=== PATIENT | male | born 1950 | race Caucasian/White ===

== ENCOUNTER → 2016-05-15 | Outpatient (CLI) | payer OTHER, MEDICARE | END | disposition home or self-care (01) | LOC: PCVCCLINIC 13:20 | PROVIDERS: ATTEND Internal Medicine | DX: R07.89 Other chest pain (principal); R06.02 Shortness of breath; I10 Essential (primary) hypertension; E78.1 Pure hyperglyceridemia; E11.9 Type 2 diabetes mellitus without complications | CPT/HCPCS: 80061; 93005; 93325; 93351 ==

== ENCOUNTER → 2016-06-19 | Outpatient (CLI) | payer OTHER, MEDICARE | END | disposition home or self-care (01) | LOC: PCVCCLINIC 14:05 | PROVIDERS: ATTEND Internal Medicine | DX: I25.10 Atherosclerotic heart disease of native coronary artery without angina pectoris (principal); E11.9 Type 2 diabetes mellitus without complications; I65.29 Occlusion and stenosis of unspecified carotid artery; E78.5 Hyperlipidemia, unspecified; R09.89 Other specified symptoms and signs involving the circulatory and respiratory systems | CPT/HCPCS: G0463 ==

== ENCOUNTER → 2016-06-24 | Outpatient (CLI) | payer OTHER, MEDICARE | END | disposition home or self-care (01) | LOC: PCVCIMAG 09:26 | PROVIDERS: ATTEND Internal Medicine | DX: I10 Essential (primary) hypertension (principal); E11.9 Type 2 diabetes mellitus without complications; R19.07 Generalized intra-abdominal and pelvic swelling, mass and lump; Z87.891 Personal history of nicotine dependence | CPT/HCPCS: 93880; 93978 ==

== ENCOUNTER → 2016-09-10 | Outpatient (CLI) | payer OTHER, MEDICARE | END | disposition home or self-care (01) | LOC: PCVCCLINIC 16:40 | PROVIDERS: ATTEND Internal Medicine | DX: I25.10 Atherosclerotic heart disease of native coronary artery without angina pectoris (principal); E11.9 Type 2 diabetes mellitus without complications; E78.5 Hyperlipidemia, unspecified; I65.29 Occlusion and stenosis of unspecified carotid artery; E78.1 Pure hyperglyceridemia; G51.0 Bell's palsy; K21.9 Gastro-esophageal reflux disease without esophagitis; Z87.898 Personal history of other specified conditions; Z87.891 Personal history of nicotine dependence; Z79.899 Other long term (current) drug therapy | CPT/HCPCS: 93005; G0463 ==

== ENCOUNTER → 2016-12-18 | Outpatient (CLI) | payer OTHER, MEDICARE ==
--- NOTE | 2016-12-18 15:43 | PCVCIMAG ---
APPROVED REPORT Exam: Stress Echocardiogram Indication: CAD, STENT Stress Nurse: Sherri Rodriguez RN Status: routine Ht: 5 ft 9 in HR: 68 bpm BP: 110/74 mmHg Procedure The patient underwent an Exercise Stress Test using the Macho Protocol. Blood pressure, heart rate, and EKG were monitored. An Echocardiogram was performed by copy room technician in four stages in quad fashion. At peak stress, four selected images were obtained and placed side by side with resting images for comparison. Stress Test Details Stress Test: Exercise stress testing was performed using a Macho protocol. HR Resting HR: 68 bpmMax Heart Rate (APMHR): 152 bpm Max HR Achieved: 142 bpmTarget HR (85% APMHR): 129 bpm % of APMHR: 93 HR response to stress: Normal HR response to stress BP Resting BP: 110/74 mmHg Max BP: 160/86 mmHg ECG Resting ECG: Sinus Rhythm, RBBB ST Change: Normal Maximum ST Deviation: 0 mm Recovery ECG: Sinus Rhythm Recovery ST Deviation: 0 mm Clinical Reason for Termination: Maximal effort Exercise duration: 12 min sec Highest Stage Achieved: Stage 4: 4.2 mph at 16% grade. Exercise capacity: 13.70 METs Angina Score: None Stress ECG Conclusion ECG: Non-ischemic Clinical: Non-ischemic Barber Treadmill Score is 12.0 which is Low risk. Pre-Stress Echo The resting Echocardiogram showed normal left ventricular contractility with an estimated Ejection Fraction of about 55-60%. Normal wall motion in all segments on baseline images. Post-Stress Echo The stress Echocardiogram showed normal left ventricular contractility with an estimated Ejection Fraction of about 60-65%. Normal augmentation of wall motion in all segments on post stress images. Clinical No clinical or ECG evidence for ischemia. Conclusion Clinical Response: Non-ischemic Exercise Capacity: Average Stress ECG Response: Non-ischemic Stress Echo Images: Non-ischemic Normal stress echocardiogram with maximal exercise stress. Other Information Study Quality: Good <Conclusion> Normal stress echocardiogram with maximal exercise stress.
== END | disposition home or self-care (01) ==
LOC: PCVCIMAG 13:52
PROVIDERS: ATTEND Internal Medicine
DX: I25.10 Atherosclerotic heart disease of native coronary artery without angina pectoris (principal); E11.9 Type 2 diabetes mellitus without complications; E78.5 Hyperlipidemia, unspecified; I45.10 Unspecified right bundle-branch block; I10 Essential (primary) hypertension; Z95.5 Presence of coronary angioplasty implant and graft; Z79.4 Long term (current) use of insulin
CPT/HCPCS: 93325; 93351

== ENCOUNTER → 2017-05-23 | Outpatient (CLI) | payer MEDICARE | END | disposition home or self-care (01) | LOC: PCVCCLINIC 15:00 | DX: I25.10 Atherosclerotic heart disease of native coronary artery without angina pectoris (principal); I10 Essential (primary) hypertension; E78.5 Hyperlipidemia, unspecified; I65.23 Occlusion and stenosis of bilateral carotid arteries; Z87.891 Personal history of nicotine dependence; Z79.82 Long term (current) use of aspirin; Z79.899 Other long term (current) drug therapy | CPT/HCPCS: 80061; 93005; G0463 ==

== ENCOUNTER → 2017-11-25 | Outpatient (CLI) | payer MEDICARE | END | disposition home or self-care (01) | LOC: PCVCCLINIC 10:39 | PROVIDERS: ATTEND Internal Medicine | DX: I25.10 Atherosclerotic heart disease of native coronary artery without angina pectoris (principal); I10 Essential (primary) hypertension; E78.5 Hyperlipidemia, unspecified; I65.23 Occlusion and stenosis of bilateral carotid arteries; E11.9 Type 2 diabetes mellitus without complications; Z87.891 Personal history of nicotine dependence; Z88.8 Allergy status to other drugs, medicaments and biological substances; Z79.82 Long term (current) use of aspirin; Z79.899 Other long term (current) drug therapy | CPT/HCPCS: 93005; G0463 ==

== ENCOUNTER → 2018-04-28 | Outpatient (CLI) | payer MEDICARE | END | disposition home or self-care (01) | LOC: PCVCCLINIC 13:25 | PROVIDERS: ATTEND Internal Medicine | DX: I25.10 Atherosclerotic heart disease of native coronary artery without angina pectoris (principal); E78.5 Hyperlipidemia, unspecified; I10 Essential (primary) hypertension; I65.23 Occlusion and stenosis of bilateral carotid arteries; E78.00 Pure hypercholesterolemia, unspecified; K21.9 Gastro-esophageal reflux disease without esophagitis; Z87.891 Personal history of nicotine dependence; Z79.82 Long term (current) use of aspirin | CPT/HCPCS: 93005; G0463 ==

== ENCOUNTER → 2018-05-05 | Outpatient (CLI) | payer MEDICARE ==
--- NOTE | 2018-05-05 11:48 | PCVCIMAG ---
APPROVED REPORT Study performed: 05/05/2018 10:30:55 Exam: Stress Echocardiogram Indication: CAD s/p PCI, Hypertension Patient Location: Echo lab Stress Nurse: Casie aKm RN Room #: 2 Status: routine Ht: 5 ft 8 in HR: 69 bpm BP: 118/70 mmHg Rhythm: NSR Medical History Medical History: CAD s/p stent, HTN, Hyperlipidemia Cardiac Risk Factors: HTN, Hyperlipidemia Previous Cardiac Procedures: PCI Pretest Chest Pain Characteristics: No chest pain Exercise History: Physically active Procedure The patient underwent an Exercise Stress Test using the Macho Protocol. Blood pressure, heart rate, and EKG were monitored. An Echocardiogram was performed by dental laboratory technician in four stages in quad fashion. At peak stress, four selected images were obtained and placed side by side with resting images for comparison. Stress Test Details Stress Test: Exercise stress testing was performed using a Macho protocol. HR Resting HR: 67 bpmMax Heart Rate (APMHR): 151 bpm Max HR Achieved: 153 bpmTarget HR (85% APMHR): 128 bpm % of APMHR: 101 Recovery HR: 80 bpm HR response to stress: Normal HR response to stress BP Resting BP: 118/70 mmHg Max BP: 162/78 mmHg Recovery BP: 168/78 mmHg BP response to stress: Normal blood pressure response to stress. Medication held x 1 day ECG Resting ECG: Sinus Rhythm Stress ECG: Sinus Rhythm ST Change: Non-ischemic Maximum ST Deviation: 0 mm Arrhythmia: None Recovery ECG: Sinus Rhythm Recovery ST Change: Non-ischemic Recovery ST Deviation: 0 mm Recovery Arrhythmia: None Clinical Reason for Termination: Maximal effort Stress Symptoms: Fatigue, Dyspnea Exercise duration: 13 min 09 sec Highest Stage Achieved: Stage 5: 5.0 mph at 18% grade. Exercise capacity: 17.20 METs Overall Exercise Capacity for Age: Excellent Scale: Active Angina Score: None No complications. Stress ECG Conclusion The patient exercised according to the MACHO protocol for 13:09 mins; achieving a work level of 17.20 METS. The resting heart rate of 67 bpm [place]ohini to a maximum heart rate of 153 bpm. This value represent 101% of the maximal, age-predicted heart rate. The resting blood pressure of 118/70 mmHg, mohini to a maximum blood pressure of 168/78 mmHg. The exercise test was stopped due to fatigue amd dyspnea. Barber Treadmill Score is 13.0 which is Low risk. Pre-Stress Echo The resting Echocardiogram showed normal left ventricular contractility with an estimated Ejection Fraction of about 55-60%. Normal wall motion in all segments on baseline images. Post-Stress Echo The stress Echocardiogram showed normal left ventricular contractility with an estimated Ejection Fraction of about 65-70%. Normal augmentation of wall motion in all segments on post stress images. Clinical No clinical or ECG evidence for ischemia. Conclusion Clinical Response: Non-ischemic Exercise Capacity: Superior Stress ECG Response: Non-ischemic Stress Echo Images: Non-ischemic No clinical, EKG or echocardiographic evidence for ischemia. No echocardiographic evidence for exercise induced ischemia. Normal stress echocardiogram with maximal exercise stress. <Conclusion> No clinical, EKG or echocardiographic evidence for ischemia. No echocardiographic evidence for exercise induced ischemia. Normal stress echocardiogram with maximal exercise stress.
== END | disposition home or self-care (01) ==
LOC: PCVCIMAG 12:06
PROVIDERS: ATTEND Internal Medicine
DX: I10 Essential (primary) hypertension (principal); I25.10 Atherosclerotic heart disease of native coronary artery without angina pectoris; R06.02 Shortness of breath; R10.11 Right upper quadrant pain; E78.1 Pure hyperglyceridemia; R09.89 Other specified symptoms and signs involving the circulatory and respiratory systems; E88.81 Metabolic syndrome and other insulin resistance; R07.9 Chest pain, unspecified
CPT/HCPCS: 93325; 93351